=== PATIENT | male | born 1975 | race Caucasian/White ===

== ENCOUNTER 2022-05-13 10:56 | Emergency (ER) | payer SELFPAY ==
[~2022-05-13] VITALS: Ht 154.9 cm; Wt 142.9 kg
[2022-05-13 11:20] VITALS: BP 164/110
[2022-05-13] MEDS ORDERED: KETOROLAC 30 MG/ML VIAL IM ONE (12:15)
--- NOTE | 2022-05-13 12:34 | NUR ---
46 y/o male, c/o sharp pain on left ankle that started yesterday morning. denies injury or fall. a&ox4, normally ambulates with cane, does not ambulate at this time due to inability to put pressure on left foot. pt states he had an achilles tendinitis sx last year on right foot. pmh: gout, plantar fasciitis, achilles tendinitis nka med: tylenol
[2022-05-13] MEDS ORDERED: PRED20TA5 PO (13:45)
[2022-05-13] MEDS ORDERED: NAPR-54 PO (13:45)
[2022-05-13 14:36] VITALS: BP 164/110
--- NOTE | 2022-05-13 14:36 | NUR ---
Patient discharged with v/s stable. Written and verbal after care instructions given and explained. Patient alert, oriented and verbalized understanding of instructions. ambulatory with to family to car using crutches. All questions addressed prior to discharge. ID band removed. Patient advised to follow up with PMD. Rx of given. Patient educated on indication of medication including possible reaction and side effects. Opportunity to ask questions provided and answered. rx: naproxen, prednisone
== END 2022-05-13 14:36 | disposition home or self-care (01) ==
LOC: MED 10:56
DX: M25.572 Pain in left ankle and joints of left foot (principal)
CPT/HCPCS: 36415; 73610; 84550; 93971; 96372; 99285; J1885